=== PATIENT | female | born 1990 | race African-American/Black ===

== ENCOUNTER 2025-03-14 00:20 | Inpatient (IN) | payer BC ==
[~2025-03-14] VITALS: Ht 152.4 cm; Wt 49.6 kg
[2025-03-14] MEDS ORDERED: LORazepam 2 MG/ML VIAL ONE (00:43)
[2025-03-14] MEDS: LORazepam 2 MG/ML VIAL IM ONE (01:12)
[2025-03-14 01:29] LABS: COVID AG,FIA SOURCE NASAL SWAB
[2025-03-14 01:44] LABS: SARS-COV2 (COVID) ANTIGEN,FIA Negative (Negative)
[2025-03-14] MEDS ORDERED: ZOLPIDEM TARTRATE 10 MG TABLET PO PRN (04:00)
[2025-03-14 12:29] VITALS: O2SAT 99
[2025-03-14 13:25] LABS: CALCIUM, TOTAL 9.1 mg/dL (8.8-10.5); CREATININE 0.53 mg/dL (0.60-1.30); GLOMERULAR FILTR. RATE CALC > 60 mL/min (>60); GLUCOSE,RANDOM 102 mg/dL (70-110); SODIUM SERUM 137 mmol/L (136-145); UREA NITROGEN, BLOOD 9 mg/dL (7-18)
[2025-03-14 16:33] VITALS: BP 122/81; PULSE 88; RESP 16; TEMP 98.4; O2SAT 99
[2025-03-14 20:56] VITALS: BP 125/90; PULSE 92; RESP 17; TEMP 98.1; O2SAT 100
[2025-03-15 08:41] VITALS: BP 119/96; PULSE 87; RESP 16; TEMP 97.3; O2SAT 99
[2025-03-15] MEDS ORDERED: BENZOCAINE/MENTHOL [CEPACOL] LOZENGE PO PRN (08:45)
[2025-03-15] MEDS ORDERED: MAGNESIUM HYDROXIDE SUSPENSION 30 ML UDCUP PO PRN (08:45)
[2025-03-15] MEDS ORDERED: OMEPRAZOLE 20 MG CAPSULE PO PRN (08:45)
[2025-03-15] MEDS ORDERED: ONDANSETRON 4 MG TABLET PO PRN (08:45)
[2025-03-15] MEDS ORDERED: ALBUTEROL SULFATE HFA 90 MCG/PUFF 8 GM INHALER IH PRN (08:45)
[2025-03-15] MEDS ORDERED: ACETAMINOPHEN 325 MG TABLET PO PRN (08:45)
[2025-03-15] MEDS ORDERED: BACITRACIN 28 GM OINTMENT TP PRN (08:45)
[2025-03-15] MEDS ORDERED: MAG HYDROX/ALUMINUM HYD/SIMETH ES 30 ML SUSPENSION UDCUP PO PRN (08:45)
[2025-03-15] MEDS ORDERED: DOCUSATE SODIUM 100 MG CAPSULE PO PRN (08:45)
[2025-03-15] MEDS ORDERED: PETROLATUM,WHITE 28 GM JELLY TP PRN (08:45)
[2025-03-15] MEDS ORDERED: IBUPROFEN 600 MG TABLET PO PRN (08:45)
[2025-03-15] MEDS ORDERED: LOPERAMIDE HCL 2 MG CAPSULE PO PRN (08:45)
[2025-03-15 09:45] VITALS: RESP 18
[2025-03-15 10:45] VITALS: RESP 18
[2025-03-15 17:53] VITALS: RESP 18
[2025-03-15 18:53] VITALS: RESP 18
[2025-03-15 22:15] VITALS: RESP 18
[2025-03-16 08:22] VITALS: BP 104/83; PULSE 100; RESP 18; TEMP 97.9; O2SAT 98
[2025-03-16] MEDS ORDERED: DISU250T8 PO (13:47)
== END 2025-03-16 15:20 | disposition home or self-care (01) | DRG 885 ==
LOC: EMS 00:22 → B3A 15:01
PROVIDERS: ADMIT Psychiatry & Neurology Psychiatry; ATTEND Psychiatry & Neurology Psychiatry
DX: F31.9 Bipolar disorder, unspecified (principal); Z20.822 Contact with and (suspected) exposure to COVID-19; G47.00 Insomnia, unspecified; F41.9 Anxiety disorder, unspecified; K59.00 Constipation, unspecified; F25.9 Schizoaffective disorder, unspecified; F10.129 Alcohol abuse with intoxication, unspecified; Y90.0 Blood alcohol level of less than 20 mg/100 ml; Z79.899 Other long term (current) drug therapy
CPT/HCPCS: 80048; 96372; 99285; G0480; J1200; J1630; J2060

== ENCOUNTER 2025-05-04 21:37 | Inpatient (IN) | payer BC ==
[~2025-05-04] VITALS: Ht 152.4 cm; Wt 49.6 kg
[~2025-05-04 21:37] MED LIST: DISU250T8 PO
[2025-05-04] MEDS: SODIUM CHLORIDE 0.9% 1,000 ML IV ONE (22:55)
[2025-05-04 23:38] LABS: COVID AG,FIA SOURCE NASAL SWAB
[2025-05-05] VITALS (12 sets, daily range): BP systolic 116–140; BP diastolic 73–87; PULSE 84–118; RESP 16–18; TEMP 98–100.8; O2SAT 97–100
[2025-05-05] LABS: SARS-COV2 (COVID) ANTIGEN,FIA Negative (Negative)
[2025-05-05] MEDS ORDERED: ZOLPIDEM TARTRATE 10 MG TABLET PO PRN (02:30)
[2025-05-05] MEDS ORDERED: INFLUENZA VIRUS VACCINE TVS (6MO+) 2025-26/PF 45 MCG/0.5 ML SYRINGE IM. ONE (06:30)
[2025-05-05] MEDS ORDERED: MAGNESIUM HYDROXIDE SUSPENSION 30 ML UDCUP PO PRN (08:00)
[2025-05-05] MEDS ORDERED: OMEPRAZOLE 20 MG CAPSULE PO PRN (08:00)
[2025-05-05] MEDS ORDERED: BENZOCAINE/MENTHOL [CEPACOL] LOZENGE PO PRN (08:00)
[2025-05-05] MEDS ORDERED: PETROLATUM,WHITE 28 GM JELLY TP PRN (08:00)
[2025-05-05] MEDS ORDERED: ALBUTEROL SULFATE HFA 90 MCG/PUFF 8 GM INHALER IH PRN (08:00)
[2025-05-05] MEDS ORDERED: ONDANSETRON 4 MG TABLET PO PRN (08:00)
[2025-05-05] MEDS ORDERED: MAG HYDROX/ALUMINUM HYD/SIMETH ES 30 ML SUSPENSION UDCUP PO PRN (08:00)
[2025-05-05] MEDS ORDERED: BACITRACIN 28 GM OINTMENT TP PRN (08:00)
[2025-05-05] MEDS ORDERED: IBUPROFEN 600 MG TABLET PO PRN (08:00)
[2025-05-05] MEDS ORDERED: DOCUSATE SODIUM 100 MG CAPSULE PO PRN (08:00)
[2025-05-05] MEDS ORDERED: LOPERAMIDE HCL 2 MG CAPSULE PO PRN (08:00)
[2025-05-05 08:26] LABS: PLATELET COUNT (AUTO) 149 K/uL (150-450); RED BLOOD CELL COUNT(AUTO) 3.95 MIL/uL (4.00-5.20); RED CELL DISTRIBUTION WIDTH 17.6 % (11.5-14.5); WHITE BLOOD COUNT (AUTO) 3.9 K/uL (4.5-11.0)
[2025-05-05 08:37] LABS: ASPARTATE AMINOTRANSFERASE 69 U/L (15-37); TOTAL PROTEIN, SERUM 7.7 g/dL (6.4-8.2)
[2025-05-05 08:51] LABS: CALCIUM, TOTAL 8.4 mg/dL (8.8-10.5); CREATININE 0.43 mg/dL (0.60-1.30); GLOMERULAR FILTR. RATE CALC > 60 mL/min (>60); GLUCOSE,RANDOM 53 mg/dL (70-110); SODIUM SERUM 140 mmol/L (136-145); UREA NITROGEN, BLOOD 8 mg/dL (7-18)
[2025-05-05 09:01] LABS: ALCOHOL, BLOOD (SERUM) 89 mg/dL (0-10)
[2025-05-05] MEDS: ESCITALOPRAM OXALATE 10 MG TABLET PO SCH (12:46)
[2025-05-05 16:31] LABS: GLUCOMETER DEV NAME(LOC) BV2S.; GLUCOSE,POINT OF CARE 214 MG/DL (70-110)
[2025-05-05] MEDS: ACETAMINOPHEN 325 MG TABLET PO PRN (18:19)
[2025-05-06 01:00] VITALS: BP 133/69; PULSE 83; RESP 17; TEMP 98.7; O2SAT 98
[2025-05-06 01:52] VITALS: BP 133/69; PULSE 83; RESP 17; TEMP 98.7; O2SAT 98
[2025-05-06 05:52] VITALS: BP 134/81; PULSE 72; RESP 18; TEMP 97.9; O2SAT 98
[2025-05-06] MEDS: CYANOCOBALAMIN 1,000 MCG/ML VIAL IM ONE (06:53)
[2025-05-06 08:28] VITALS: BP 117/86; PULSE 96; RESP 18; TEMP 96.8; O2SAT 99
[2025-05-06 08:37] LABS: PLATELET COUNT (AUTO) 135 K/uL (150-450); RED BLOOD CELL COUNT(AUTO) 4.16 MIL/uL (4.00-5.20); RED CELL DISTRIBUTION WIDTH 17.1 % (11.5-14.5); WHITE BLOOD COUNT (AUTO) 3.1 K/uL (4.5-11.0)
[2025-05-06 08:59] LABS: ASPARTATE AMINOTRANSFERASE 65 U/L (15-37); CALCIUM, TOTAL 9.2 mg/dL (8.8-10.5); CHOL/HDL RATIO 1.9 (3.9-5.7); CREATININE 0.41 mg/dL (0.60-1.30); GLOMERULAR FILTR. RATE CALC > 60 mL/min (>60); GLUCOSE,RANDOM 76 mg/dL (70-110); LDL CHOL (CALC.) 93 mg/dL (0-130); SODIUM SERUM 139 mmol/L (136-145); TOTAL PROTEIN, SERUM 7.8 g/dL (6.4-8.2); UREA NITROGEN, BLOOD 8 mg/dL (7-18)
[2025-05-06] MEDS: MULTIVITAMINS WITH MINERALS, THERAPEUTIC TABLET PO SCH (09:32)
[2025-05-06] MEDS: FOLIC ACID 1 MG TABLET PO SCH (09:32)
[2025-05-06] MEDS: THIAMINE 100 MG TABLET PO SCH (09:32)
[2025-05-06 09:52] VITALS: BP 135/87; PULSE 84; RESP 16; TEMP 97.5; O2SAT 100
[2025-05-06 13:52] VITALS: BP 118/95; PULSE 92; RESP 16; TEMP 98.6; O2SAT 97
[2025-05-07] MEDS ORDERED: ESCI-8 PO (04:35)
== END 2025-05-06 17:10 | disposition home or self-care (01) | DRG 881 ==
LOC: EMS 21:37 → B2S 05-05 03:22
PROVIDERS: ADMIT Psychiatry & Neurology Psychiatry; ATTEND Psychiatry & Neurology Psychiatry
PROC: GZHZZZZ Group Psychotherapy (ICD-10-PCS; principal; 2025-05-05)
DX: F32.9 Major depressive disorder, single episode, unspecified (principal); R45.851 Suicidal ideations; F23 Brief psychotic disorder; E78.5 Hyperlipidemia, unspecified; R73.9 Hyperglycemia, unspecified; Z20.822 Contact with and (suspected) exposure to COVID-19; F41.9 Anxiety disorder, unspecified; G47.00 Insomnia, unspecified; K59.00 Constipation, unspecified; Y90.4 Blood alcohol level of 80-99 mg/100 ml; Z79.899 Other long term (current) drug therapy
CPT/HCPCS: 80048; 80053; 80061; 80076; 82962; 83036; 83735; 84436; 84443; 84703; 85025; 93005; G0480; G0481; J3420